=== PATIENT | female | born 1975 | race Asian ===

== ENCOUNTER 2016-11-22 10:07 | Emergency (ER) | payer OTHER ==
[~2016-11-22] VITALS: Ht 152.4 cm; Wt 59.0 kg
[2016-11-22 10:20] VITALS: BP 148/96
--- NOTE | 2016-11-22 10:30 | NUR ---
PATIENT PRESENTS TO ED WITH C/O RASH FACE, TRUNK, BL LOWER EXTREMITIES HX; HTN, HYPERCHOLESTEROLEMIA . PT STATES WOKE UP THIS AM WITH C/O RASH. DENIES N/V/D; SKIN IS PINK/WARM/DRY; AAOX4 WITH EVEN AND STEADY GAIT; LUNGS CLEAR BL; HR EVEN AND REGULAR; PT DENIES ANY FEVER, CP, SOB, OR COUGH AT THIS TIME; PATIENT STATES PAIN OF 2/10 AT THIS TIME; VSS; PATIENT POSITIONED FOR COMFORT; HOB ELEVATED; BEDRAILS UP X2; BED DOWN. ER MD MADE AWARE OF PT STATUS.
[2016-11-22 12:26] VITALS: BP 128/88
--- NOTE | 2016-11-22 12:26 | NUR ---
Patient discharged with v/s stable. Written and verbal after care instructions given and explained. Patient alert, oriented and verbalized understanding of instructions. Ambulatory with steady gait. All questions addressed prior to discharge. ID band removed. Patient advised to follow up with PMD. Rx of ACYCLOVIR, NORCO given. Patient educated on indication of medication including possible reaction and side effects. Opportunity to ask questions provided and answered.
== END 2016-11-22 12:26 | disposition home or self-care (01) ==
LOC: MED 10:07
DX: R21 Rash and other nonspecific skin eruption (principal); I10 Essential (primary) hypertension; E78.5 Hyperlipidemia, unspecified
CPT/HCPCS: 99283